=== PATIENT | female | born 1965 | race American Indian/Alaskan Native ===

== ENCOUNTER 2021-02-21 07:46 | Emergency (ER) | payer BC ==
--- NOTE | 2021-02-21 08:56 | XRay Report ---
CHEST 2 VIEWS INDICATION: Chest Pain. COMPARISON: None FINDINGS: Support devices: None. Heart: Within normal limits. Lungs/pleura: No acute air space or interstitial disease. No pneumothorax. Additional findings: None. IMPRESSION: No acute findings. Signer Name: Gomez Aamya Jr, MD Signed: 02/21/2021 8:52 AM Workstation Name: [id number]
[2021-02-21 08:57] LABS: Eosinophils # (Auto) 0.1 K/mm3 (0.0-0.4); Eosinophils % (Auto) 3.3 % (0.0-4.3); Hemoglobin 13.5 gm/dl (10.1-14.3); Lymphocytes # (Auto) 1.2 K/mm3 (1.2-5.4); Lymphocytes % (Auto) 44.3 % (13.4-35.0); Mean Corpuscular HGB Conc 34 % (30-34); Mean Corpuscular Volume 99 fl (79-97); Monocytes # (Auto) 0.2 K/mm3 (0.0-0.8); Monocytes % (Auto) 8.7 % (0.0-7.3); Platelet Count 228 K/mm3 (140-440); Red Blood Count 4.06 M/mm3 (3.65-5.03); Red Cell Distribution Width 14.2 % (13.2-15.2)
[2021-02-21 09:10] LABS: Blood Urea Nitrogen 16 mg/dL (7-17); Calcium 9.4 mg/dL (8.4-10.2); Hemolysis Index 5
[2021-02-21 09:15] LABS: BUN/Creatinine Ratio 23
--- NOTE | 2021-02-21 11:03 | Event Note ---
ED Screening Note ED Screening Note: headache, fever, chills, bodyaches, SOB, chest pressure that began this morning she states her temperature was 102 and she took tylenol this morning around 4 am states she goes her COVID vaccine in september no n/v/d, no leg swelling, no pain with breathing, no productive cough states she traveled to [place], states she flew there and just got back yesterday no sick contacts PMHx HTN, aortic insufficiency no allergies to meds non smoker no family cardiac hx This initial assessment/diagnostic orders/clinical plan/treatment(s) is/are subject to change based on patients health status, clinical progression and re- assessment by fellow clinical providers in the ED. Further treatment and workup at subsequent clinical providers discretion. Patient/guardian urged not to elope from the ED as their condition may be serious if not clinically assessed and managed. Initial orders include:
[2021-02-21 11:07] VITALS: BP 129/79
--- NOTE | 2021-02-21 11:12 | Emergency Department Report ---
ED General Adult HPI - General Chief complaint: Chest Pain Stated complaint: CHEST PAIN/SOB Time Seen by Provider: 02/21/21 11:00 Source: patient Mode of arrival: Ambulatory Limitations: No Limitations - History of Present Illness Initial comments: Patient is a 55-year-old female presents emergency room with complaints of headache, fever, chills, bodyaches, SOB, chest pressure that began this morning she states her temperature was 102 and she took tylenol this morning around 4 am she states she got her COVID vaccine in september no n/v/d, no leg swelling, no pain with breathing, no productive cough states she traveled to [place], states she flew there and just got back yesterday no sick contacts PMHx HTN, aortic insufficiency no allergies to meds non smoker no family cardiac hx - Related Data Previous Rx's Medication Instructions Recorded Last Taken Type Acetaminophen/Codeine [Tylenol 1 tab PO Q6H PRN #10 tab 02/21/21 Unknown Rx /Codeine # 3 tab] Benzonatate [Tessalon Perles] 100 mg PO Q8HR PRN #12 capsule 02/21/21 Unknown Rx guaiFENesin/DEXTROMETHORPHAN 1 each PO Q6HR PRN #14 capsule 02/21/21 Unknown Rx [Coricidin Hbp Chest Anton-Cough] Allergies Allergy/AdvReac Type Severity Reaction Status Date / Time No Known Allergies Allergy Unverified 02/21/21 08:09 ED Review of Systems ROS: Stated complaint: CHEST PAIN/SOB Other details as noted in HPI Comment: All other systems reviewed and negative ED Past Medical Hx - Past Medical History Previous Medical History?: No - Surgical History Past Surgical History?: No - Medications Home Medications: Home Medications Medication Instructions Recorded Confirmed Last Taken Type Acetaminophen/Codeine [Tylenol 1 tab PO Q6H PRN #10 tab 02/21/21 Unknown Rx /Codeine # 3 tab] Benzonatate [Tessalon Perles] 100 mg PO Q8HR PRN #12 capsule 02/21/21 Unknown Rx guaiFENesin/DEXTROMETHORPHAN 1 each PO Q6HR PRN #14 capsule 02/21/21 Unknown Rx [Coricidin Hbp Chest Anton-Cough] ED Physical Exam - General Limitations: No Limitations General appearance: alert, in no apparent distress - Head Head exam: Present: atraumatic, normocephalic - Eye Eye exam: Present: normal appearance - ENT ENT exam: Present: mucous membranes moist - Respiratory Respiratory exam: Present: normal lung sounds bilaterally. Absent: respiratory distress, wheezes, rales, rhonchi, stridor, chest wall tenderness, accessory muscle use, decreased breath sounds, prolonged expiratory - Cardiovascular Cardiovascular Exam: Present: regular rate, normal rhythm, normal heart sounds. Absent: systolic murmur, diastolic murmur, rubs, gallop - Neurological Exam Neurological exam: Present: alert, oriented X3 - Psychiatric Psychiatric exam: Present: normal affect, normal mood - Skin Skin exam: Present: warm, dry, intact ED Course Vital Signs 02/21/21 11:07 Temperature 98.5 F Pulse Rate 66 Respiratory 18 Rate Blood Pressure 129/79 O2 Sat by Pulse 97 Oximetry ED Medical Decision Making - Lab Data Result diagrams: 02/21/21 08:15 02/21/21 08:15 - EKG Data EKG shows normal: sinus rhythm, axis, intervals Rate: normal - EKG Data 02/21/21 11:11 LVH with secondary repolarization abnormality T wave inversion in diffuse leads no STEMI - Radiology Data Radiology results: report reviewed Ordering Physician: ED MD BRIANA Date of Service: 02/21/21 Procedure(s): XR chest routine 2V Accession Number(s): [id number] cc: ED MD BRIANA Fluoro Time In Minutes: CHEST 2 VIEWS INDICATION: Chest Pain. COMPARISON: None FINDINGS: Support devices: None. Heart: Within normal limits. Lungs/pleura: No acute air space or interstitial disease. No pneumothorax. Additional findings: None. IMPRESSION: No acute findings. Signer Name: Gomez Ochoa Jr, MD Signed: 02/21/2021 8:52 AM Workstation Name: [id number] Transcribed By: TTR Dictated By: GOMEZ OCHOA JR, MD Electronically Authenticated By: GOMEZ OCHOA JR, MD Signed Date/Time: 02/21/21851 DD/ 1 TD/TT: - Medical Decision Making Patient is a 55-year-old female presents emergency room with complaints of headache, fever, chills, bodyaches, SOB, chest pressure that began this morning she states her temperature was 102 and she took tylenol this morning around 4 am she states she got her COVID vaccine in september no n/v/d, no leg swelling, no pain with breathing, no productive cough states she traveled to [place], states she flew there and just got back yesterday no sick contacts PMHx HTN, aortic insufficiency no allergies to meds non smoker no family cardiac hx Vitals are stable. No abnormality on physical examination as documented in chart. Labs are stable. cxr: No acute findings. EKG with LVH, no signs of STEMI. troponin is negative. symptoms appear most likely related to Viral URI. Given that patient is presenting with the symptoms during COVID-19 pandemic, discussed the possibility of COVID-19 with patient, discussed outpatient testing, discussed return precautions, discussed self quarantine. Patient has no signs of severe COVID-19, no opacities on x-ray, I ambulated patient for 2 minutes in the emergency department and she maintained oxygen saturation of 97% or greater on room air. Patient is low risk based on Wells criteria for PE, PE unlikely. Advised patient please take medication as prescribed. Please increase your fluid intake over the next several days. May take Tylenol as needed for fever or body aches. Follow-up with a primary care doctor for reexamination. Return to emergency room immediately for any new or worsening symptoms including but not limited to difficulty breathing, shortness of breath, severe chest pain, unable to tolerate by mouth intake, etc. recommend for you to get an outpatient COVID-19 test and if positive please self quarantine following CDC guidelines. Recommend for you to get a pulse oximetry meter [id number] and if oxygen is dropping below 93%, please return to the emergency room immediately. Critical care attestation.: If time is entered above; I have spent that time in minutes in the direct care of this critically ill patient, excluding procedure time. ED Disposition Clinical Impression: URI (upper respiratory infection) Qualifiers: URI type: unspecified URI Qualified Code(s): J06.9 - Acute upper respiratory infection, unspecified Disposition: DC- TO HOME OR SELFCARE Is pt being admited?: No Does the pt Need Aspirin: No Condition: Stable Instructions: Viral Respiratory Infection Additional Instructions: please take medication as prescribed. Please increase your fluid intake over the next several days. May take Tylenol as needed for fever or body aches. Follow-up with a primary care doctor for reexamination. Return to emergency room immediately for any new or worsening symptoms including but not limited to difficulty breathing, shortness of breath, severe chest pain, unable to tolerate by mouth intake, etc. recommend for you to get an outpatient COVID-19 test and if positive please self quarantine following CDC guidelines. Recommend for you to get a pulse oximetry meter [id number] and if oxygen is dropping below 93%, please return to the emergency room immediately. Prescriptions: guaiFENesin/DEXTROMETHORPHAN [Coricidin Hbp Chest Anton-Cough] 1 each PO Q6HR PRN #14 capsule PRN Reason: congestion/cough Benzonatate [Tessalon Perles] 100 mg PO Q8HR PRN #12 capsule PRN Reason: cough Acetaminophen/Codeine [Tylenol /Codeine # 3 tab] 1 tab PO Q6H PRN #10 tab PRN Reason: pain Referrals: your, primary care doctor [Other] - 2-3 Days Forms: Work/School Release Form(ED) Time of Disposition: 11:47 Print Language: SOUTH [place]UDANESE
--- NOTE | 2021-02-23 09:12 | Electrocardiograph Report ---
[facility] Test Date: 2021-02-21 Test Time: 08:23:37 Pat Name: TOBY PARRA Department: Room: Gender: F [employer]ment [employer]: COCO : 1965 Requested By: ED DOC Order Number: [id number] Reading MD: Ron Dickinson Measurements Intervals [place] Rate: 72 P: 85 GA: 104 QRS: 18 QRSD: 105 T: 201 QT: 371 QTc: 408 Interpretive Statements Sinus rhythm LVH with secondary repolarization abnormality No previous ECG available for comparison Electronically Signed On 02-23-2021 9:12:07 EDT by Ron Dickinson
== END 2021-02-21 13:00 | disposition home or self-care (01) ==
LOC: ED 07:46
DX: J06.9 Acute upper respiratory infection, unspecified (principal); Z79.899 Other long term (current) drug therapy
CPT/HCPCS: 36415; 71046; 80048; 84484; 85025; 93005